=== PATIENT | male | born 1940 | race Caucasian/White ===

== ENCOUNTER → 2017-05-02 | Outpatient (CLI) | payer OTHER ==
[~2017-05-02] MED LIST: ACETAMINOPHEN-1 EAC1 PO; ALBUTEROL2.5 MG/31 INH; ATORVASTATIN CA40 MG PO; CARVEDILOL12.5 MG PO; CENTRUM SILVER1 EAC2 PO; FLONASE 0.05%50 MCG NASAL; GABAPENTIN 100100 MG PO; K-DUR 20 MEQ T20 MEQ PO; LASIX 20 MG TAB20 MG PO; LOSARTAN POTAS100 MG PO; METOPROLOL SUCC50 MG PO; OMEPRAZOLE 20 M20 M1 PO; PRADAXA150 MG PO; PROAIR HFA8.5 GM INH; SLEEP AID50 MG PO; SPIRIVA INH; SYMBICORT160 MCG/4. INH; VITAMIN B-121000 MC3 PO; VITAMINC500 PO
--- NOTE | ~2017-05-02 | EKG ---
[place] [address] [facility] [place] [address] ELECTROCARDIOGRAM REPORT Name: NIRALI METZGER Room #: [facility]#: [id number] Admission: 05/02/17 Attend Phys: Cash Oliver MD, Discharge: Date of : 40 Report #: [id number] THIS REPORT FOR: //name// [facility] Test Date: 2017-05-02 Test Time: 12:19:16 Pat Name: NIRALI METZGER Department: Room: Gender: M Ore Puncher: Jeni PERES : 1940 Requested By: Cash Oliver Order Number: [id number] MD: Tate Swenson Measurements Intervals Lemitar Rate: 64 P: 46 OR: 151 QRS: 19 QRSD: 111 T: 66 QT: 434 QTc: 448 Interpretive Statements Sinus rhythm Anterior infarct, old Nonspecific intraventricular conduction delay No previous ECG available for comparison Electronically Signed On 05-03-2017 7:56:49 [employer]FFY [employer] by Tate Swenson [email or web address] <ELECTRONICALLY SIGNED> By: Tate Swenson MD, [facility] 05/03/17 0756 1219 1219 Tate Swenson MD, FACC /EPI
[2017-05-02 12:12] LABS: CALCIUM 8.9 mg/dL (8.5-10.1); CREATININE 1.1 mg/dL (0.7-1.3); POTASSIUM 4.5 mmol/L (3.5-5.1)
== END ==
LOC: CV 11:27
PROVIDERS: Surgery
DX: Z01.818 Encounter for other preprocedural examination (principal)

== ENCOUNTER 2017-05-09 05:26 | Day surgery (SDC) | payer OTHER ==
[~2017-05-09] VITALS: Ht 177.8 cm; Wt 113.4 kg
--- NOTE | ~2017-05-09 | O ---
[facility] [place] [address] OPERATIVE REPORT Name: NIRALI METZGER Room #: 150-5 [facility] M.R.#: [id number] Admission: 05/09/17 Attend Phys: Cash Oliver MD, Discharge: Date of : 40 Report #: [id number] THIS REPORT FOR: //name// CC: ERIC Oliver DATE OF SERVICE: 05/09/2017 PREOPERATIVE DIAGNOSIS: Left chest wall mass. POSTOPERATIVE DIAGNOSIS: Left breast mass. PROCEDURE PERFORMED: Left partial mastectomy. SURGEON: Cash Oliver MD HEALTH CARE SANITARY TECHNICIAN: YVON White ANESTHESIA: Monitored anesthesia care with local. ESTIMATED BLOOD LOSS: Minimal (less than 5 mL). COMPLICATIONS: None appreciated. SPECIMENS: Left breast mass with a single short suture marking lateral, a single long suture marking superior and a double long suture marking anterior. INDICATIONS: The patient is a 76-year-old male with a slowly enlarging mass to the left chest wall, which on exam in the office was nontender and mobile and appeared to be a sebaceous cyst. Indication was for excision. However, at the time under anesthesia today with a more involved examination, this appeared to be breast tissue located at 7 o'clock position, approximately 5 cm from the nipple areolar complex. As such, this required partial mastectomy with marking the specimen appropriately as indicated above for appropriate pathologic diagnosis. Gross exam showed this to be likely gynecomastia. DESCRIPTION OF PROCEDURE: After explaining the risks, benefits and alternatives of the procedure with the patient in detail and obtaining consent, the patient was brought to the operating room and placed supine on the operating room table. After conducting a thorough timeout procedure verifying correct patient and procedure, the patient was given monitored anesthesia care. Once adequate anesthesia was obtained, his SCDs were hooked up to pneumatic compression device. He was given a preoperative dose of antibiotics in line with the SCIP protocol. The patient's left chest was prepped and draped in standard surgical sterile fashion. A 10 mL of 0.5% Marcaine with epinephrine were used to anesthetize the skin overlying the mass in question. A #15 bladed scalpel was [address] [address] OPERATIVE REPORT Name: NIRALI METZGER Room #: 150-5 [facility].#: [id number] Admission: 05/09/17 Attend Phys: Cash Oliver MD, Discharge: Date of : 40 Report #: [id number] used to create a 4 cm transverse skin incision at this location. Electrocautery was used to carry this down through skin and subcutaneous tissues until I arrived upon the anterior aspect of the mass. I now gained circumferential control of the mass using electrocautery to excise this all the way down to pectoralis fascia. Once fully excised, it was removed and marked appropriately as above. It was then passed off the field. The resection cavity was evaluated for complete hemostasis and there was no bleeding whatsoever. I then used 3-0 Vicryl in standard interrupted inverted fashion to anchor the dermal layer and then using a running 4-0 Monocryl, proceeded to close the subcuticular layer in standard running fashion. Dermabond glue was then applied to the skin wound. At the end of the procedure, all instrument, needle and sponge counts were correct. The patient tolerated the procedure without incident, was awakened in the operating room, transitioned to the recovery room in stable condition with no apparent complications. <ELECTRONICALLY SIGNED> By: Cash Oliver MD, FACS 05/09/17 1334 1223 1241 Cash Oliver MD, FACS /nt
--- NOTE | ~2017-05-09 | S ---
[facility] [place] [address] SURGICAL PATH RPT PROCEDURE Name: NIRALI METZGER Room #: DEP [facility] M.R.#: [id number] Admission: 05/09/17 Date of : 40 Discharge: 05/09/17 Report #: [id number] Path Case #: [id number] PATHOLOGY REPORT COLLECTION DATE: 05/09/2017 RECEIVED DATE: 05/09/2017 SUBMITTING PHYS: Dr. 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 - Negative for malignancy. - Numerous vessels and nerves present. - No breast parenchyma identified. (IUV:db; 05/10/2017) PATHOLOGIST: Princess Forman M.D. REPORT ELECTRONICALLY SIGNED BY: Princess Forman M.D. DATE/TIME: 05/10/2017 13:59 * * * * * * * * * * * * GROSS PATHOLOGY: The specimen is received in formalin labeled "Nirali Metzger, left partial mastectomy, short single lateral, short double superior, long double anterior". Received is a 13 g oriented segments of bright yellow lobulated tissue with a double short suture designating the superior margin, a single short suture designating the lateral margin, and a long double suture designating the anterior margin. The specimen measures 4.9 cm from medial to lateral, 3.5 cm from anterior to posterior, and 1.5 cm from superior to inferior. The specimen is inked as follows: Superior-blue, inferior-green, lateral-red, medial-yellow, anterior-black, posterior-orange. Sectioning reveals yellow-aceves, lobulated to white-aceves, fibrous cut surfaces throughout, with the fibrous tissue encompassing less than 1% of the specimen. No distinct nodules or lesions are noted grossly. The specimen is submitted entirely from lateral to medial aspects in cassettes A1 through A14, with the sections in cassettes A8 and A9 additionally bisected into anterior and posterior aspects. The cold ischemic time is 9 minutes. The total formalin fixation time is 11 hours and 37 minutes. [address] [place] [address] SURGICAL PATH RPT PROCEDURE Name: NIRALI METZGER Room #: [facility]..#: [id number] Admission: 05/09/17 Date of : 40 Discharge: 05/09/17 Report #: [id number] Path Case #: [id number] (CAA; 05/09/2017) CLINICAL HISTORY: Left chest wall mass INITIAL CPT CODE(S): 39577 Professional services performed by [facility] at [address], [place] [address] Technical services performed by [facility] at [address] [place] [address], [address] [address]. ERIC YOST [facility] [address] [address] PHONE: [phone] DIRECTOR: Yong Bermeo M.D. * * * END OF REPORT * * *
[~2017-05-09 05:26] MED LIST changes: -ACETAMINOPHEN-1 EAC1 PO
[2017-05-09 08:45] LABS: HEMATOCRIT 38.1 % (42.0-52.0); HEMOGLOBIN 12.4 gm/dL (14.0-18.0)
[2017-05-09 09:10] VITALS: BP 158/89
[2017-05-09] MEDS ORDERED: ACETAMINOPHEN-1 EAC1 PO (10:19)
== END 2017-05-09 11:00 | disposition home or self-care (01) ==
LOC: TBA 05:26 → OR 05:26
PROVIDERS: Surgery
DX: N64.1 Fat necrosis of breast (principal); J43.9 Emphysema, unspecified; G47.33 Obstructive sleep apnea (adult) (pediatric); I10 Essential (primary) hypertension; E78.5 Hyperlipidemia, unspecified; I73.89 Other specified peripheral vascular diseases; K21.9 Gastro-esophageal reflux disease without esophagitis; Z86.718 Personal history of other venous thrombosis and embolism; Z87.891 Personal history of nicotine dependence; Z85.828 Personal history of other malignant neoplasm of skin; Z87.442 Personal history of urinary calculi; Z98.890 Other specified postprocedural states; Z96.611 Presence of right artificial shoulder joint; Z98.41 Cataract extraction status, right eye; Z98.42 Cataract extraction status, left eye; Z79.899 Other long term (current) drug therapy; Z90.49 Acquired absence of other specified parts of digestive tract
CPT/HCPCS: 50010; 50101; 50386; 50403; 54118; 56524; 56526; 62110; 62850; 70005